=== PATIENT | female | born 1960 | race Caucasian/White ===

== ENCOUNTER → 2017-04-03 | Outpatient (CLI) | payer BC ==
[~2017-04-03] MED LIST: CALCIUM + D 6001 TA1 PO; LOSARTAN-HCTZ1 EAC1 PO; MULTI-DAY VITAM1 TAB PO
--- NOTE | ~2017-04-03 | CR181 ---
[facility] RADIOLOGY TEXT RESULTS PATIENT: HERIBERTO PEOPLES LOCATION: [facility] : 56 UNIT #: [id number] AGE: [address]: KIRSTEN JIMENEZ MD SEX: F ORDER DR: [id number] [facility] [address] [place], [place] [address] [id number] O MR#: [id number] #: [id number] NAME: HERIBERTO PEOPLES. : 1960 SEX: F STUDY DATE/TIME: 04/03/2017 13:30 UNIT: [facility] ROOM: STUDY DESCRIPTION: CR Lumbar Spine 2 or 3 Views Attending Physician: Kirsten Jimenez M.D. Referring Physician: Kirsten Jimenez M.D. Ordering Physician: Kirsten Jimenez M.D. Primary Care Physician: Kirsten Jimenez M.D. MEDICAL IMAGING REPORT This report is preliminary unless electronic signature is present EXAM Lumbar spine series HISTORY Intermittent back pain chronically but worse over the past 4-5 days. TECHNIQUE Three views of the lumbar spine were obtained. FINDINGS There are degenerative changes seen at all lumbar levels. At the upper 3 lumbar discs, there is mild disc space narrowing with small osteophytes. At L4-5, there is moderate disc space narrowing. There is asymmetric narrowing of the left side of the disc at L4-5 and along the left lateral disc margin there is a small osteophyte with more extensive disc space narrowing. At L5-S1, the disc is unremarkable. There is mild bilateral facet disease, greater on the left than on the right. No fractures or destructive bone lesions are seen. IMPRESSION Generally aasu-[id number]-[id number] degenerative changes in the discs and facets as described above. There is asymmetric left-sided disc space narrowing at the L4-5 level. This results in a mild dextroscoliosis across L4-5. Dictated by... Tani Benites M.D. THIS IS AN ELECTRONICALLY VERIFIED REPORT Tani Benites M.D. at 04/04/2017 3:44 PM RLF/cindi TD: 04/04/2017 07:52 [facility] RADIOLOGY TEXT RESULTS PATIENT: HERIBERTO PEOPLES LOCATION: [facility] #: [id number] : 56 UNIT #: [id number] AGE: [address]: KIRSTEN JIMENEZ MD SEX: F ORDER DR: JOB #: [id number] MEDICAL IMAGING REPORT Page 1 of 1 COPY
== END | disposition home or self-care (01) ==
LOC: CRAD 13:07
DX: M54.5 Low back pain (principal); M47.896 Other spondylosis, lumbar region; M48.06 Spinal stenosis, lumbar region; M41.9 Scoliosis, unspecified
CPT/HCPCS: 72100